=== PATIENT | male | born 1960 | race American Indian/Alaskan Native ===

== ENCOUNTER 2019-07-12 11:07 | Emergency (ER) | payer OTHER ==
[2019-07-12 11:35] VITALS: BP 127/79
[2019-07-12 12:39] LABS: Basophils % (Auto) 0.4 % (0.0-1.8); Eosinophils % (Auto) 0.4 % (0.0-4.3); Hematocrit 41.4 % (35.5-45.6); Hemoglobin 14.3 gm/dl (11.8-15.2); Lymphocytes # (Auto) 1.4 K/mm3 (1.2-5.4); Lymphocytes % (Auto) 25.1 % (13.4-35.0); Mean Corpuscular HGB Conc 35 % (32-34); Mean Corpuscular Volume 87 fl (84-94); Monocytes # (Auto) 0.7 K/mm3 (0.0-0.8); Monocytes % (Auto) 11.7 % (0.0-7.3); Platelet Count 149 K/mm3 (140-440); Red Blood Count 4.77 M/mm3 (3.65-5.03); Red Cell Distribution Width 13.5 % (13.2-15.2)
[2019-07-12 13:11] LABS: Alanine Aminotransferase 36 units/L (7-56); Albumin 4.1 g/dL (3.9-5); BUN/Creatinine Ratio 13; Blood Urea Nitrogen 10 mg/dL (9-20); Calcium 9.2 mg/dL (8.4-10.2); Hemolysis Index 2
[2019-07-12 13:40] LABS: Bilirubin,Direct < 0.2 mg/dL (0-0.2)
--- NOTE | 2019-07-12 13:42 | XRay Report ---
CHEST 1 VIEW INDICATION: cough. COMPARISON: None. FINDINGS: Support devices: None. Heart: Normal. Lungs/Pleura: No acute pulmonary or pleural findings. IMPRESSION: 1. No acute findings. Signer Name: Dru Morrison MD Signed: 07/12/2019 1:38 PM Workstation Name: [id number]
--- NOTE | 2019-07-12 14:04 | Emergency Department Report ---
ED General Adult HPI - General Chief complaint: Upper Respiratory Infection Stated complaint: FLU LIKE SYM Time Seen by Provider: 07/12/19 11:49 Source: patient Mode of arrival: Ambulatory Limitations: No Limitations - History of Present Illness Initial comments: 58-year old [employer] employee is sent at the direction of his EMS medical records auditor for evaluation in our ED, RE: Nati 19. Her concern was basically due to the patient's travel history. The patient had returned from a 1 week cruise to [place] from [place] on Thursday. He flew back to [place] and reported cold-like symptoms. He had no known sick contacts. He had no contact with anyone who had tested positive for Covidien 19. The patient has a history of hypertension but is otherwise well. Takes medicine for hypertension but nothing else. He states that he has had a sore throat since Thursday. He felt as if he had a fever but no chills. He has had an occasional cough 1 time slightly blood- tinged but not persistently productive. He does not complain of chest pain or s hortness of breath whatsoever. He has had some achiness. He denies any leg pain or swelling. -: days(s) Quality: other (Sore throat) Associated Symptoms: denies other symptoms, cough Treatments Prior to Arrival: none - Related Data Allergies Allergy/AdvReac Type Severity Reaction Status Date / Time No Known Allergies Allergy Unverified 12/08/13 15:03 ED Review of Systems ROS: Stated complaint: FLU LIKE SYM Other details as noted in HPI Constitutional: denies: chills, fever Eyes: denies: eye pain, eye discharge, vision change ENT: throat pain. denies: ear pain Respiratory: cough (Occasional). denies: shortness of breath, wheezing Cardiovascular: denies: chest pain, palpitations Endocrine: no symptoms reported Gastrointestinal: denies: abdominal pain, nausea, diarrhea Genitourinary: denies: urgency, dysuria Musculoskeletal: denies: back pain, joint swelling, arthralgia Skin: denies: rash, lesions Neurological: denies: headache, weakness, paresthesias Psychiatric: denies: anxiety, depression Hematological/Lymphatic: denies: easy bleeding, easy bruising ED Past Medical Hx - Past Medical History Previous Medical History?: No - Surgical History Past Surgical History?: No - Social History Smoking Status: Never Smoker Substance Use Type: None ED Physical Exam - General Limitations: No Limitations General appearance: alert, in no apparent distress - Head Head exam: Present: atraumatic, normocephalic - Eye Eye exam: Present: normal appearance. Absent: scleral icterus - ENT ENT exam: Present: mucous membranes moist, other - Neck Neck exam: Present: normal inspection, lymphadenopathy (Anterior cervical chain nodes bilateral). Absent: tenderness, meningismus - Respiratory Respiratory exam: Present: normal lung sounds bilaterally. Absent: respiratory distress - Cardiovascular Cardiovascular Exam: Present: regular rate, normal rhythm. Absent: systolic murmur, diastolic murmur, rubs, gallop - GI/Abdominal GI/Abdominal exam: Present: soft, normal bowel sounds. Absent: distended, tenderness, guarding, rebound, rigid - Rectal Rectal exam: Present: deferred - Extremities Exam Extremities exam: Present: normal inspection - Back Exam Back exam: Present: normal inspection - Neurological Exam Neurological exam: Present: alert, oriented X3, CN II-XII intact. Absent: motor sensory deficit - Psychiatric Psychiatric exam: Present: normal affect, normal mood - Skin Skin exam: Present: warm, dry, intact, normal color. Absent: rash ED Course Vital Signs 07/12/19 11:30 Temperature 98.3 F Pulse Rate 60 Respiratory 16 Rate Blood Pressure 127/79 O2 Sat by Pulse 97 Oximetry ED Medical Decision Making - Lab Data Result diagrams: 07/12/19 12:16 07/12/19 12:16 Laboratory Results - last 24 hr 07/12/19 07/12/19 07/12/19 12:16 12:16 12:25 WBC 5.7 RBC 4.77 Hgb 14.3 Hct 41.4 MCV 87 MCH 30 MCHC 35 H RDW 13.5 Plt Count 149 Lymph % (Auto) 25.1 [place] % (Auto) 11.7 H Eos % (Auto) 0.4 Baso % (Auto) 0.4 Lymph # 1.4 [place] # 0.7 Eos # 0.0 Baso # 0.0 Seg Neutrophils % 62.4 Seg Neutrophils # 3.5 Sodium 139 Potassium 3.8 Chloride 102.4 Carbon Dioxide 22 Anion Gap 18 BUN 10 Creatinine 0.8 Estimated GFR > 60 BUN/Creatinine Ratio 13 Glucose 99 Calcium 9.2 Total Bilirubin 0.70 Direct Bilirubin < 0.2 Indirect Bilirubin 0.5 AST 31 ALT 36 Alkaline Phosphatase 77 Total Protein 7.9 Albumin 4.1 Albumin/Globulin Ratio 1.1 Influenza A (Rapid) Negative Influenza B (Rapid) Negative Group A Strep Rapid Negative Critical care attestation.: If time is entered above; I have spent that time in minutes in the direct care of this critically ill patient, excluding procedure time. ED Disposition Clinical Impression: Viral illness Disposition: DC-01 TO HOME OR SELFCARE Is pt being admited?: No Does the pt Need Aspirin: No Condition: Stable Instructions: Viral Syndrome (ED) Additional Instructions: Increase fluids. Tylenol/Advil. Follow-up with EMS Workmen's Comp./employee health and your primary MD. return any acute change or problem. Referrals: PRIMARY CARE, [Primary Care Provider] - 3-5 Days Time of Disposition: 14:09
== END 2019-07-12 14:22 | disposition home or self-care (01) ==
LOC: ED 11:07
DX: B34.9 Viral infection, unspecified (principal); I10 Essential (primary) hypertension
CPT/HCPCS: 36415; 71045; 80048; 80076; 85025; 87116; 87400; 87430